=== PATIENT | female | born 1975 | race Caucasian/White ===

== ENCOUNTER 2020-02-07 14:09 | Emergency (ER) | payer MEDICAID ==
[~2020-02-07] VITALS: Ht 154.9 cm; Wt 69.9 kg
[2020-02-07 15:10] VITALS: Ht 154.9 cm; Wt 69.9 kg
[2020-02-07 16:47] VITALS: BP 103/69
== END 2020-02-07 16:47 | disposition home or self-care (01) ==
LOC: ED 14:09
DX: R05 Cough (principal); R07.89 Other chest pain; J02.9 Acute pharyngitis, unspecified
CPT/HCPCS: Q0092